=== PATIENT | male | born 1980 | race Caucasian/White ===

== ENCOUNTER 2016-12-23 16:51 | Emergency (ER) | payer MEDICAID ==
[2016-12-23 17:04] VITALS: BP 143/89
[2016-12-23] MEDS ORDERED: LIDOCAINE 5% (700 MG) TRANSDERMAL ADH..PATCH TP ONE (17:32)
--- NOTE | 2016-12-23 17:32 | ER Document Report ---
HPI - HPI Pain Level: 3 Notes: Patient is a 36-year-old male with no significant past medical history presents the ED complaining of being very sensitive to touch of the skin on the left mid back and the location of his previous shingles 13 years ago. Patient states that he did have chickenpox as a child and an episode of shingles 13 years ago which was treated at that time. Patient states that over the last one half days he has been very sensitive to the area without any development of rash. Patient denies any injury. He still eating and drinking without difficulties. Denies any injections or procedures into his back. Denies any IV drug use. Denies any history of diabetes. Denies any headache, fever, neck pain, URI, sore throat, chest pain, palpitations, syncope, cough, shortness of breath, wheeze, dyspnea, abdominal pain, nausea/vomiting/diarrhea, urinary retention, dysuria, hematuria, loss of control of bowel or bladder, numbness/tingling, saddle anesthesia, muscle paralysis/weakness, or rash. - ROS Notes: REVIEW OF SYSTEMS: CONSTITUTIONAL : Denies fever, chills, or sweats. Denies recent illness. EENT: Denies eye, ear, throat, or mouth pain or symptoms. Denies nasal or sinus congestion or discharge. Denies throat, tongue, or mouth swelling or difficulty swallowing. CARDIOVASCULAR: Denies chest pain. Denies palpitations or racing or irregular heart beat. Denies ankle edema. RESPIRATORY: Denies cough, cold, or chest congestion. Denies shortness of breath, difficulty breathing, or wheezing. GASTROINTESTINAL: Denies abdominal pain or distention. Denies nausea, vomiting , or diarrhea. GENITOURINARY: Denies difficulty urinating, painful urination, burning, frequency, blood in urine, or discharge. MUSCULOSKELETAL: see hpi SKIN: Denies rash, lesions or sores. NEUROLOGICAL: Denies confusion or altered mental status. Denies passing out or loss of consciousness. Denies dizziness or lightheadedness. Denies headache. Denies weakness or paralysis or loss of use of either side. Denies problems with gait or speech. Denies sensory loss, numbness, or tingling. ALL OTHER SYSTEMS REVIEWED AND NEGATIVE. Dictation was performed using [employer] voice recognition software Past Medical History - Social History Smoking Status: Current Every Day Smoker Family History: Reviewed & Not Pertinent GI Medical History: Reports: Hx Gastroesophageal Reflux Disease - otc meds Past Surgical History: Reports: Hx Oral Surgery - Immunizations Immunizations up to date: Yes Hx Diphtheria, Pertussis, Tetanus Vaccination: Yes Vertical Provider Document - CONSTITUTIONAL Agree With Documented VS: Yes Notes: PHYSICAL EXAMINATION: GENERAL: Well-appearing, well-nourished and in no acute distress. LUNGS: Breath sounds clear to auscultation bilaterally and equal. No wheezes rales or rhonchi. HEART: Regular rate and rhythm without murmurs, rubs, gallops. ABDOMEN: Soft, nontender, nondistended abdomen. No guarding, no rebound. No masses appreciated. Normal bowel sounds present. No CVA tenderness bilaterally. No pulsatile mass Musculoskeletal: LE's b/l: FROM to passive/active. Strength 5+/5. No deficits noted. No bony tenderness of extremities. Back: FROM to passive/active. Strength 5+/5. No vertebral point tenderness, stepoffs, or deformities. No other bony tenderness, erythema, swelling, or ecchymosis. SLR negative b/l. + tenderness to light touch to the skin of the left mid back around derm. T8. No rash or lesions at this time. Unilateral and does not cross midline. Extremities: No cyanosis, clubbing, or edema b/l. Peripheral pulses 2+. Capillary refill less than 2 seconds. NEUROLOGICAL: Normal speech, ataxic gait. Normal sensory, motor exams. Reflexes 2+ b/l. PSYCH: Normal mood, normal affect. SKIN: Warm, Dry, normal turgor, no rashes or lesions noted. - INFECTION CONTROL TRAVEL OUTSIDE OF THE [place] IN LAST 30 DAYS: No - RESPIRATORY O2 Sat by Pulse Oximetry: 99 Course - Re-evaluation Re-evalutation: 12/23/16 17:39 Patient is an afebrile, well-hydrated, 36-year-old male who presents the ED with hypersensitivity as a left mid back, possible early development of herpes zoster outbreak or neuralgia from previous shingles infection. Vitals are stable. PE is otherwise unremarkable for any focal neurological deficits. Low suspicion for any meningitis, fracture, expanding/ruptured AAA, cauda equina syndrome, epidural mass lesion/abscess, herniated disc causing severe spinal stenosis, or other systemic infection at this time. Patient is aware that his condition can change from initial presentation and that he needs monitor symptoms closely for any acute changes. Lidoderm patch applied today. I will send him home with a prescription for Lidoderm as well as Valtrex. Patient may start the Valtrex if development of any rash or lesions to the skin. Conservative measures for symptoms otherwise. Recheck with your PCM in 3-5 days. Return to the ED with any worsening/concerning symptoms otherwise as reviewed in discharge. Patient is in agreement. - Vital Signs Vital signs: Temp Pulse Resp BP Pulse Ox 98.7 F 101 H 18 143/89 H 99 12/23/16 17:00 12/23/16 17:00 12/23/16 17:00 12/23/16 17:00 12/23/16 17:00 Discharge - Discharge Clinical Impression: Back pain Qualifiers: Back pain location: back pain in unspecified location Chronicity: unspecified Back pain laterality: left Qualified Code(s): M54.9 - Dorsalgia, unspecified Condition: Stable Disposition: HOME, SELF-CARE Additional Instructions: Rest, Ice, Compression, Elevation Tylenol/ibuprofen as needed Light stretches daily Strength exercises as able Moist heat and massage may help F/u with your PCP in 3-5 days for a recheck Consider consult(s) with Orthopedics/physical therapy for ongoing/worsening symptoms Return to the ED with any worsening symptoms and/or development of fever, headache, chest pain, palpitations, syncope, shortness of breath, trouble breathing, abdominal pain, n/v/d, blood in stool/urine, loss of control of bowel /bladder, urinary retention, muscle weakness/paralysis, saddle anesthesia, numbness/tingling, or other worsening symptoms that are concerning to you. Prescriptions: Lidocaine [Lidoderm] 1 each TP DAILY #10 adh..patch Valacyclovir HCl [Valacyclovir] 1,000 mg PO TID #21 tablet Forms: Elevated Blood Pressure, Smoking Cessation Education Referrals: [facility] [Provider Group] - Follow up as needed [facility] [Provider Group] - Follow up as needed
== END 2016-12-23 18:50 | disposition home or self-care (01) ==
LOC: ER 16:51
DX: M54.9 Dorsalgia, unspecified (principal); F17.200 Nicotine dependence, unspecified, uncomplicated
CPT/HCPCS: 99283; J3490

== ENCOUNTER 2016-12-31 19:05 | Emergency (ER) | payer MEDICAID ==
[2016-12-31 19:10] VITALS: BP 150/94
--- NOTE | 2016-12-31 19:19 | ER Document Report ---
HPI - HPI Patient complains to provider of: toe pain Pain Level: 4 Context: Patient is a 36-year-old male who presents emergency department complaining of left second toe pain. States he was helping unload a truck yesterday and jumped off the bed of a truck, denies landing weird. States he woke up this AM with some pain and bruising in his toe but has been able to walk all day with minimal pain and has been taking motrin otherwise healthy Past Medical History - Social History Smoking Status: Current Every Day Smoker Family History: Reviewed & Not Pertinent Renal/ Medical History: Denies: Hx Peritoneal Dialysis GI Medical History: Reports: Hx Gastroesophageal Reflux Disease - otc meds Past Surgical History: Reports: Hx Oral Surgery - Immunizations Immunizations up to date: Yes Hx Diphtheria, Pertussis, Tetanus Vaccination: Yes Vertical Provider Document - CONSTITUTIONAL Agree With Documented VS: Yes Notes: PHYSICAL EXAM GENERAL: Alert, interacts well. HEAD: Normocephalic, atraumatic. EYES: Pupils equal, round, and reactive to light. Extraocular movements intact. ENT: Oral mucosa moist, tongue midline. NECK: Full range of motion. Supple. Trachea midline. LUNGS: Clear to auscultation bilaterally, no wheezes, rales, or rhonchi. No respiratory distress. HEART: Regular rate and rhythm. No murmurs, gallops, or rubs. ABDOMEN: Soft, nondistended, nontender. No guarding, rebound, or rigidity.. Bowel sounds present in all 4 quadrants. EXTREMITIES: Moves all 4 extremities spontaneously. No edema, radial and dorsalis pedis pulses 2/4 bilaterally. No cyanosis. NEUROLOGICAL: Alert and oriented x4. Normal speech. PSYCH: Normal affect, normal mood. SKIN: Warm, dry, normal turgor. No rashes or lesions noted. - INFECTION CONTROL TRAVEL OUTSIDE OF THE [place] IN LAST 30 DAYS: No - RESPIRATORY O2 Sat by Pulse Oximetry: 99 Course - Re-evaluation Re-evalutation: 12/31/16 19:57 No evidence of acute injury on x-ray. Patient able to ambulate without assistance. Patient given Tylenol and is stable for discharge home and can follow-up with primary care - Vital Signs Vital signs: Temp Pulse Resp BP Pulse Ox 98.6 F 119 H 20 150/94 H 99 12/31/16 19:08 12/31/16 19:08 12/31/16 19:08 12/31/16 19:08 12/31/16 19:08 - Diagnostic Test Radiology reviewed: Image reviewed, Reports reviewed Discharge - Discharge Clinical Impression: Toe pain Qualifiers: Laterality: left Qualified Code(s): M79.675 - Pain in left toe(s) Condition: Good Disposition: HOME, SELF-CARE Instructions: Acetaminophen, Use of [id number] Ibuprofen ([facility]), Ice & Elevation ([facility]), Stubbed Toe ([facility]) Referrals: KARINA JOSEPH PA [Primary Care Provider] - Follow up as needed
--- NOTE | 2016-12-31 19:53 | RADIOLOGY REPORT (SQ) ---
EXAM DESCRIPTION: TOE LEFT COMPLETED DATE/TIME: 12/31/2016 7:36 pm REASON FOR STUDY: left 2nd toe with bruising and pain COMPARISON: None. NUMBER OF VIEWS: Two views. TECHNIQUE: AP and lateral images acquired of the left toes. LIMITATIONS: None. FINDINGS: MINERALIZATION: Normal. BONES: No acute fracture or dislocation. No worrisome bone lesions. JOINTS: No effusions. SOFT TISSUES: No soft tissue swelling. No foreign body. OTHER: No other significant finding. IMPRESSION: NO RADIOGRAPHIC EVIDENCE OF ACUTE INJURY. COMMENT: SITE OF TRAUMA/COMPLAINT MARKED/STAMP COMPLETED: No TECHNICAL DOCUMENTATION: JOB ID: [id number] [place]-72 2010 [employer]- All Rights Reserved
== END 2016-12-31 20:00 | disposition home or self-care (01) ==
LOC: ER 19:05
DX: M79.675 Pain in left toe(s) (principal); F17.200 Nicotine dependence, unspecified, uncomplicated
CPT/HCPCS: 99283

== ENCOUNTER → 2017-11-11 | Outpatient (CLI) | payer MEDICAID ==
--- NOTE | 2017-11-11 18:36 | RADIOLOGY REPORT (SQ) ---
EXAM DESCRIPTION: L SPINE WHOLE COMPLETED DATE/TIME: 11/11/2017 6:14 pm REASON FOR STUDY: S39.012A STRAIN OF MUSCLE, FASCIA AND TENDON OF LOWER BACK, INIT S39.012A STRAIN OF MUSCLE, FASCIA AND TENDON OF LOWER BACK, COMPARISON: 07/10/2009 NUMBER OF VIEWS: Five views including obliques. TECHNIQUE: AP, lateral, oblique, and sacral radiographic images acquired of the lumbar spine. LIMITATIONS: None. FINDINGS: MINERALIZATION: Normal. SEGMENTATION: Normal. No transitional anatomy. ALIGNMENT: Normal. VERTEBRAE: Maintained height. No fracture or worrisome bone lesion. DISCS: Preserved height. No significant osteophytes or end plate irregularity. POSTERIOR ELEMENTS: Pedicles and facets are intact. No pars defect or posterior arch defects. HARDWARE: None in the spine. PARASPINAL SOFT TISSUES: Normal. PELVIS: Intact as visualized. No fractures or worrisome bone lesions. SI joints intact. OTHER: No other significant finding. IMPRESSION: NORMAL 5 VIEW LUMBAR SPINE. TECHNICAL DOCUMENTATION: JOB ID: [id number] [employer]- All Rights Reserved Reading location - IP/workstation name: [email or web address]
== END ==
LOC: RAD 17:40
PROVIDERS: ATTEND Family Medicine
DX: S39.012A Strain of muscle, fascia and tendon of lower back, initial encounter (principal); X58.XXXA Exposure to other specified factors, initial encounter
CPT/HCPCS: 72110

== ENCOUNTER 2018-08-10 13:51 | Emergency (ER) | payer MEDICAID ==
[2018-08-10] MEDS ORDERED: ALBUTEROL SULFATE HFA (90 MCG/PUFF) 8 GM MDI (1 MDI/ER DISP) IH PRN (15:16)
[2018-08-10] MEDS ORDERED: CETIRIZINE 10 MG TABLET PO ONE (15:16)
[2018-08-10] MEDS ORDERED: BENZONATATE 100 MG CAPSULE PO ONE (15:16)
--- NOTE | 2018-08-10 15:18 | ER Document Report ---
HPI - HPI Time Seen by Provider: 08/10/18 15:09 Pain Level: 4 Context: Patient is a 38-year-old male who presents to the emergency department the chief complaint of a cough. His cough started 6 days ago. He reports the fever of 101.6 last night while he was on Tylenol. He has not been taking any ibuprofen. He states that his chest hurts when he coughs. Denies hemoptysis. Patient is an everyday smoker. He also occasionally smokes marijuana. - CONSTITUTIONAL Constitutional: REPORTS: Fever - EENT EENT: REPORTS: Nasal Drainage-Clear, Congestion. DENIES: Ear Pain, Nasal Drainage-Purulent, Eye problems - NEURO Neurology: DENIES: Headache - CARDIOVASCULAR Cardiovascular: DENIES: Chest pain - RESPIRATORY Respiratory: REPORTS: Trouble Breathing, Coughing - MUSCULOSKELETAL Musculoskeletal: DENIES: Extremity pain - DERM Skin Color: Normal Skin Problems: None Past Medical History - General Information source: Patient - Social History Smoking Status: Current Every Day Smoker Frequency of alcohol use: Occasional Drug Abuse: Marijuana - Occasional Family History: Reviewed & Not Pertinent Renal/ Medical History: Denies: Hx Peritoneal Dialysis GI Medical History: Reports: Hx Gastroesophageal Reflux Disease - otc meds Past Surgical History: Reports: Hx Oral Surgery - Immunizations Immunizations up to date: Yes Hx Diphtheria, Pertussis, Tetanus Vaccination: Yes Vertical Provider Document - CONSTITUTIONAL Agree With Documented VS: Yes Exam Limitations: No Limitations General Appearance: No Apparent Distress - INFECTION CONTROL TRAVEL OUTSIDE OF THE [place] IN LAST 30 DAYS: No - HEENT HEENT: Atraumatic, Normocephalic, PERRLA, Pharyngeal Erythema. negative: Pharyngeal Exudate, Pharyngeal Tenderness, Tympanic Membrane Red, Tympanic Membrane Bulging - NECK Neck: Normal Inspection - RESPIRATORY Respiratory: No Respiratory Distress, Rhonchi - Right lower lobe - CARDIOVASCULAR Cardiovascular: Regular Rate, Regular Rhythm Pulses: Normal: Radial - MUSCULOSKELETAL/EXTREMETIES Musculoskeletal/Extremeties: FROM - NEURO Level of Consciousness: Awake, Alert, Appropriate - DERM Integumentary: Warm, Dry, No Rash Course - Re-evaluation Re-evalutation: 08/10/18 16:29 Patient's chest x-ray shows right lower lobe pneumonia. He will be started on azithromycin here in the emergency department and go home with azithromycin to take home with. He will also go home with Jelly Barrera. He will follow-up with his primary care provider in regards to this visit. Follow-up precautions were given. Verbal discharge instructions were given to the patient. They verbalized understanding. They are stable for discharge. - Vital Signs Vital signs: Temp Pulse Resp BP Pulse Ox 98 F 97 20 121/61 95 08/10/18 13:52 08/10/18 13:52 08/10/18 13:52 08/10/18 13:52 08/10/18 13:52 Discharge - Discharge Clinical Impression: Cough Pneumonia Qualifiers: Pneumonia type: due to unspecified organism Laterality: right Lung location: lower lobe of lung Qualified Code(s): J18.1 - Lobar pneumonia, unspecified organism Condition: Stable Disposition: HOME, SELF-CARE Additional Instructions: You have been diagnosed with a pneumonia. It is very important that you take all of your antibiotics until they are gone even if you are feeling better. Please return to the emergency department immediately if you began having worsening shortness of breath, become confused, have worsening pain, pass out, have persistent vomiting that prevents you from being able to drink fluids for more than 12 hours, or have any other symptoms that are worrisome to you. Please follow-up with your primary care doctor in the next 1-2 days. Prescriptions: Azithromycin [Zithromax 250 mg Tablet] 250 mg PO DAILY #4 tablet Forms: Return to Work Referrals: YUSEF WALLS MD [Primary Care Provider] - Follow up tomorrow
--- NOTE | 2018-08-10 16:09 | RADIOLOGY REPORT (SQ) ---
EXAM DESCRIPTION: CHEST 2 VIEWS COMPLETED DATE/TIME: 08/10/2018 3:42 pm REASON FOR STUDY: cough COMPARISON: 06/10/2013 EXAM PARAMETERS: NUMBER OF VIEWS: two views TECHNIQUE: Digital Frontal and Lateral radiographic views of the chest acquired. RADIATION DOSE: NA LIMITATIONS: none FINDINGS: LUNGS AND PLEURA: There is increased opacification in the right base and posteriorly on th e lateral view. MEDIASTINUM AND HILAR STRUCTURES: No masses or contour abnormalities. HEART AND VASCULAR STRUCTURES: Heart normal size. No evidence for failure. BONES: No acute findings. HARDWARE: None in the chest. OTHER: No other significant finding. IMPRESSION: Right lower lobe pneumonia. TECHNICAL DOCUMENTATION: JOB ID: [id number] [employer]- All Rights Reserved Reading location - IP/workstation name: [email or web address]
[2018-08-10] MEDS ORDERED: AZITHROMYCIN 250 MG TABLET PO ONE (16:29)
[2018-08-10 16:38] VITALS: BP 110/58
== END 2018-08-10 16:38 | disposition home or self-care (01) ==
LOC: ER 13:51
DX: J18.1 Lobar pneumonia, unspecified organism (principal); R05 Cough; R07.9 Chest pain, unspecified; R50.9 Fever, unspecified; R09.89 Other specified symptoms and signs involving the circulatory and respiratory systems; R06.00 Dyspnea, unspecified; F17.200 Nicotine dependence, unspecified, uncomplicated; F12.10 Cannabis abuse, uncomplicated
CPT/HCPCS: 99283; 71046; J3490 ×3; Q0144

== ENCOUNTER 2018-08-18 00:02 | Emergency (ER) | payer MEDICAID ==
[2018-08-18 00:30] VITALS: BP 123/80
== END 2018-08-18 02:27 | disposition left against medical advice (07) ==
LOC: ER 00:02
DX: Z53.21 Procedure and treatment not carried out due to patient leaving prior to being seen by health care provider (principal)

== ENCOUNTER 2018-10-11 20:44 | Emergency (ER) | payer MEDICAID ==
--- NOTE | 2018-10-11 21:31 | ER Document Report ---
HPI - HPI Time Seen by Provider: 10/11/18 21:12 Pain Level: 5 Notes: Patient is a 38-year-old male with no significant past medical history who presents complaining of right great toe pain status post injury prior to arrival. Patient states that he stubbed his toe on a dresser. He has noticed some bruising to the dorsal toe. He does have increased pain with movement. He has not noticed any bruising or bleeding underneath his nail. Denies drug allergies. No laceration or abrasion that he has noted. Denies any headache, fever, URI, sore throat, chest pain, palpitations, syncope, cough, shortness of breath, wheeze, dyspnea, abdominal pain, nausea/vomiting/diarrhea, urinary retention, dysuria, hematuria, loss of control of bowel or bladder, numbness/tingling, muscle paralysis/weakness, or rash. - ROS Systems Reviewed and Negative: Yes All other systems reviewed and negative Past Medical History - Social History Smoking Status: Current Every Day Smoker Family History: Reviewed & Not Pertinent Renal/ Medical History: Denies: Hx Peritoneal Dialysis GI Medical History: Reports: Hx Gastroesophageal Reflux Disease - otc meds Past Surgical History: Reports: Hx Oral Surgery - Immunizations Immunizations up to date: Yes Hx Diphtheria, Pertussis, Tetanus Vaccination: Yes Vertical Provider Document - CONSTITUTIONAL Agree With Documented VS: Yes Notes: PHYSICAL EXAMINATION: GENERAL: Well-appearing, well-nourished and in no acute distress. LUNGS: Breath sounds clear to auscultation bilaterally and equal. No wheezes rales or rhonchi. HEART: Regular rate and rhythm without murmurs, rubs, gallops. Musculoskeletal: Rt foot/ankle: + mild swelling/ecchymosis great toe. LROM to passive/active flexion due to pain/swelling. No subungual hematoma. Strength 5+/5. N/V intact distal. No bony tenderness of the foot/ankle otherwise. Achilles intact. Lis Franc maneuver neg. Anterior drawer neg. Extremities: No cyanosis, clubbing, or edema b/l. Peripheral pulses 2+. Capillary refill less than 3 seconds. NEUROLOGICAL: Normal speech, limping gait. Normal sensory, motor exams PSYCH: Normal mood, normal affect. SKIN: see above - INFECTION CONTROL TRAVEL OUTSIDE OF THE [place] IN LAST 30 DAYS: No Course - Re-evaluation Re-evalutation: 10/11/18 22:21 Patient is an afebrile, well-hydrated, 38-year-old male who presents to the ED with a fracture to the rt great toe. Vitals are acceptable without any significant tachycardia, tachypnea, or hypoxia. PE is otherwise unremarkable for any neurovascular compromise, obvious tendon/ligament rupture, open fracture, septic joint. See XR result. Post op shoe given today and crutches provided. Pt given pain medicine PO. Patient is nontoxic-appearing. No other labs or imaging warranted at this time based on H&P. Conservative measures otherwise for symptoms. Recheck with your PCM in 3-5 days. Call orthopedics tomorrow to schedule an appointment for further evaluation and management. Return to the ED with any worsening/concerning symptoms otherwise as reviewed in discharge. Patient is in agreement. - Vital Signs Vital signs: Temp Pulse Resp BP Pulse Ox 98.5 F 105 H 18 130/83 H 100 10/11/18 20:48 10/11/18 20:48 10/11/18 20:48 10/11/18 20:48 10/11/18 20:48 Discharge - Discharge Clinical Impression: Toe fracture, right Qualifiers: Encounter type: initial encounter Toe: great toe Fracture type: closed Phalanx: distal Fracture alignment: displaced Qualified Code(s): S92.421A - Displaced fracture of distal phalanx of right great toe, initial encounter for closed fracture Condition: Stable Disposition: HOME, SELF-CARE Additional Instructions: Rest, Ice, Compression, Elevation Use crutches/splint as directed Tylenol/ibuprofen as needed F/u with your PCP in 3-5 days for a recheck Call orthopedics tomorrow to schedule an appointment for further evaluation and management Return to the ED with any worsening symptoms and/or development of fever, headache, chest pain, palpitations, syncope, shortness of breath, trouble breathing, abdominal pain, n/v/d, muscle weakness/paralysis, numbness/tingling, swelling, redness, or other worsening symptoms that are concerning to you. Prescriptions: Tramadol HCl [Ultram 50 mg Tablet] 50 mg PO Q4HP PRN #15 tab PRN Reason: Forms: Elevated Blood Pressure, Smoking Cessation Education, Return to Work Referrals: [facility] ([facility]) [Provider Group] - Follow up as needed
[2018-10-11] MEDS ORDERED: OXYCODONE HCL IR 5 MG TABLET PO ONE (21:58)
--- NOTE | 2018-10-11 22:24 | RADIOLOGY REPORT (SQ) ---
Right foot three view on 10/11/2018 at 9:49 PM CLINICAL INDICATION: Right great toe pain after injury COMPARISON: None FINDINGS: There is an acute, oblique, minimally displaced, intra-articular fracture involving the base of the first distal phalanx. No other fracture is noted. Visualized joints are well aligned. No other bony abnormality is noted. IMPRESSION: Acute fracture of the base of the first distal phalanx as above.
[2018-10-11 22:33] VITALS: BP 119/73
== END 2018-10-11 22:32 | disposition home or self-care (01) ==
LOC: ER 20:44
DX: S92.421A Displaced fracture of distal phalanx of right great toe, initial encounter for closed fracture (principal); M79.674 Pain in right toe(s); W22.03XA Walked into furniture, initial encounter; F17.200 Nicotine dependence, unspecified, uncomplicated
CPT/HCPCS: 73630; J3490

== ENCOUNTER 2018-10-13 22:55 | Emergency (ER) | payer MEDICAID ==
[2018-10-14] MEDS ORDERED: HYDROCODONE/ACETAMINOPHEN 5-325 MG (6 TAB/ER DISP) PO PRN (00:03)
[2018-10-14 00:17] VITALS: BP 125/77
--- NOTE | 2018-10-14 00:50 | ER Document Report ---
HPI - HPI Patient complains to provider of: R big toe pain Time Seen by Provider: 10/13/18 23:31 Pain Level: 4 Context: 38-year-old male presents the emergency department with chief complaint of right big toe pain. Patient was seen here 2 days ago and diagnosed with a fracture of his right big toe. He is concerned because he is having significant pain and redness at the base of the nail not involving the nail. Patient states that his just had a hysterectomy and he has to take care of his 3 young children so he is constantly on his feet and unable to rest. Patient denies any pressure underneath the toenail or any discoloration, denies any significant new swelling from previous visit. No other complaints Past Medical History - Social History Smoking Status: Unknown if Ever Smoked Family History: Reviewed & Not Pertinent Patient has suicidal ideation: No Patient has homicidal ideation: No Renal/ Medical History: Denies: Hx Peritoneal Dialysis GI Medical History: Reports: Hx Gastroesophageal Reflux Disease - otc meds Past Surgical History: Reports: Hx Oral Surgery - Immunizations Immunizations up to date: Yes Hx Diphtheria, Pertussis, Tetanus Vaccination: Yes Vertical Provider Document - CONSTITUTIONAL Notes: PHYSICAL EXAMINATION: Reviewed vital signs and charting by RN GENERAL: Alert, interacts well. No acute distress. HEAD: Normocephalic, atraumatic. EYES: Pupils equal and round. Extraocular movements intact. ENT: Oral mucosa moist, tongue midline. EXTREMITIES: Moves all 4 extremities spontaneously, edema of the right big toe with some bruising at the base of the nail not involving the toenail, no evidence of a subungual hematoma PSYCH: Normal affect, normal mood. SKIN: Warm, dry, normal turgor. No rashes or lesions noted. - INFECTION CONTROL TRAVEL OUTSIDE OF THE [place] IN LAST 30 DAYS: No Course - Re-evaluation Re-evalutation: 10/14/18 00:52 Patient most likely overusing his foot as he is forced to take care of his kids while his is recovering duration. I explained to patient that he needs to frequently ice it and elevate it any chance he gets even if it is for short bursts. There is no evidence of a subungual hematoma, no evidence of any new acute process, I explained to patient that he should take Motrin 600 mg every 6 hours for pain and inflammation and I did give him a short course of pain medication. He understands plan agrees and is stable for discharge. - Vital Signs Vital signs: Temp Pulse Resp BP Pulse Ox 98.5 F 99 18 132/79 H 98 10/13/18 23:09 10/13/18 23:09 10/13/18 23:09 10/13/18 23:09 10/13/18 23:09 Discharge - Discharge Clinical Impression: Toe pain, right Condition: Good Disposition: HOME, SELF-CARE Additional Instructions: You were seen in the emergency department this evening for right big toe pain. Your exam was reassuring and because of your activity level right now it is because it is due to soft tissue swelling and you need to elevate it and ice it while you have opportunities to rest. I recommend buying a couple of bags of peas frozen and if you can elevate and ice your toe for 15 to 20 minutes every couple hours. If you only have a couple of minutes at a time take the oppor tunity and ice your toe. Please take Motrin 600 mg every 6 hours with food and/or milk for inflammation and you can take Tylenol 1000 mg every 6 hours for pain. Also I have given you a short course of pain medication to help bridge you through this acute phase. Please take it for breakthrough pain. Please return to the emergency department if you have any concerns or worsening symptoms.
== END 2018-10-14 00:15 | disposition home or self-care (01) ==
LOC: ER 22:55
DX: S90.111A Contusion of right great toe without damage to nail, initial encounter (principal); M79.674 Pain in right toe(s); X58.XXXA Exposure to other specified factors, initial encounter
CPT/HCPCS: 99282

== ENCOUNTER 2018-10-15 19:43 | Emergency (ER) | payer MEDICAID ==
--- NOTE | 2018-10-15 21:14 | RADIOLOGY REPORT (SQ) ---
EXAM DESCRIPTION: XR TOES 2 OR MORE VIEWS COMPLETED DATE/TME: 10/15/2018 00:00 CLINICAL HISTORY: 38 years Male bone pain COMPARISON: None. TECHNIQUE: Right toe, three views FINDINGS: Comminuted intra-articular fracture of the base of the first distal phalanx. Associated soft tissue swelling. No radiopaque foreign object noted. IMPRESSION: Comminuted fracture of the base of the first distal phalanx with soft tissue swelling
[2018-10-15] MEDS ORDERED: HYDROCODONE/ACETAMINOPHEN 5-325 MG (6 TAB/ER DISP) PO PRN (22:35)
--- NOTE | 2018-10-15 22:45 | ER Document Report ---
ED General - General Chief Complaint: Toe Injury Stated Complaint: RIGHT FOOT INJURY Time Seen by Provider: 10/15/18 22:23 Primary Care Provider: ALTAGRACIA CONTRERAS DPM [ACTIVE STAFF] - Follow up in 3-5 days Notes: Patient is a pleasant 38-year-old male who was seen here a few days ago after actually hitting the toe. The time the x-ray which did show fracture. He to follow-up orthopedics at this time there is nothing due for fracture and that would eventually on its own. Patient today was wearing his postop shoe but stepped in hole and toe bent and he felt the cracking of his toes which were painful and therefore his return to the ER. He denies any other injuries. TRAVEL OUTSIDE OF THE [place] IN LAST 30 DAYS: No - Related Data Allergies/Adverse Reactions: No Known Allergies Allergy (Verified 10/13/18 23:08) Past Medical History - Social History Smoking Status: Current Every Day Smoker Chew tobacco use (# tins/day): No Frequency of alcohol use: Rare Drug Abuse: None Family History: Reviewed & Not Pertinent Patient has suicidal ideation: No Patient has homicidal ideation: No Renal/ Medical History: Denies: Hx Peritoneal Dialysis GI Medical History: Reports: Hx Gastroesophageal Reflux Disease - otc meds Past Surgical History: Reports: Hx Oral Surgery - Immunizations Immunizations up to date: Yes Hx Diphtheria, Pertussis, Tetanus Vaccination: Yes Review of Systems - Review of Systems Notes: My Normal Review Basic REVIEW OF SYSTEMS: CONSTITUTIONAL : Denies fever, chills, or sweats. Denies recent illness. MUSCULOSKELETAL: Right big toe pain. SKIN: Denies rash or skin lesions. NEUROLOGICAL: Denies sensory or motor loss. ALL OTHER SYSTEMS REVIEWED AND NEGATIVE. Physical Exam - Vital signs Vitals: Temp Pulse Resp BP Pulse Ox 98.9 F 106 H 16 129/84 H 96 10/15/18 19:59 10/15/18 19:59 10/15/18 19:59 10/15/18 19:59 10/15/18 19:59 - Notes Notes: General Appearance: Well nourished, alert, cooperative, no acute distress, no obvious discomfort. Vitals: reviewed, See vital signs table. Extremities: She has obvious swelling to the right toe. Toe appears to be in line. He has good cap refill. Good distal sensation. Remainder foot and ankle are nontender. Skin: warm, dry, appropriate color, no rash Neuro: speech clear, oriented x 3, normal affect, responds appropriately to questions. Course - Re-evaluation Re-evalutation: 10/16/18 06:45 Patient has now a second fracture of the toe. He has some slight displacement. I talked about ora taping with postop shoe versus splint. He said he like to try aluminum splint. I informed him that if the splint is uncomfortable that he can remove it and ora tape his toe. Alignment continues to postop shoe. Given crutches. I will refer him to podiatry. Patient to return to ER if he has any further concerns. Patient agrees with plan will be discharged home. Dictation of this chart was performed using voice recognition software; therefo re, there may be some unintended grammatical errors. - Vital Signs Vital signs: Temp Pulse Resp BP Pulse Ox 98.7 F 89 15 127/80 H 99 10/15/18 23:02 10/15/18 23:02 10/15/18 23:02 10/15/18 23:02 10/15/18 23:02 Discharge - Discharge Clinical Impression: Toe fracture, right Qualifiers: Encounter type: initial encounter Toe: great toe Fracture type: closed Phalanx: distal Fracture alignment: displaced Qualified Code(s): S92.421A - Displaced fracture of distal phalanx of right great toe, initial encounter for closed fracture Condition: Good Disposition: HOME, SELF-CARE Additional Instructions: Please call Dr. Contreras, home care specialist, to make a follow-up appointment for reevaluation of your toe. Please continue wear the postop shoe. I did place an aluminum splint on your toe. If this is uncomfortable then you can remove it and just ora tape your toe. Please be aware that [facility] does have Tylenol (acetaminophen) in it. Please make sure you do not take more than 4000 mg of acetaminophen a day. Do not drive or care for children after you have taken this medication they will make you sleepy and sometimes impair judgment. Referrals: ALTAGRACIA CONTRERAS, NEREIDA [ACTIVE STAFF] - Follow up in 3-5 days
[2018-10-15 23:04] VITALS: BP 127/80
== END 2018-10-15 23:02 | disposition home or self-care (01) ==
LOC: ER 19:43
DX: S92.421A Displaced fracture of distal phalanx of right great toe, initial encounter for closed fracture (principal); X50.0XXA Overexertion from strenuous movement or load, initial encounter; F17.210 Nicotine dependence, cigarettes, uncomplicated
CPT/HCPCS: 99283

== ENCOUNTER 2019-10-11 13:41 | Emergency (ER) | payer MEDICAID ==
[2019-10-11 14:45] VITALS: BP 127/70
--- NOTE | 2019-10-11 16:13 | RADIOLOGY REPORT (SQ) ---
EXAM DESCRIPTION: HAND RIGHT 3 VIEWS IMAGES COMPLETED DATE/TIME: 10/11/2019 4:02 pm REASON FOR STUDY: injury COMPARISON: 11/09/2011. EXAM PARAMETERS: NUMBER OF VIEWS: Three views. TECHNIQUE: AP, lateral and oblique radiographic images acquired of the right hand. LIMITATIONS: None. FINDINGS: MINERALIZATION: Normal. BONES: No acute fracture or dislocation. No worrisome bone lesions. JOINTS: No effusions. SOFT TISSUES: No soft tissue swelling. No foreign body. OTHER: No other significant finding. IMPRESSION: NEGATIVE STUDY OF THE RIGHT HAND. NO RADIOGRAPHIC EVIDENCE OF ACUTE INJURY. TECHNICAL DOCUMENTATION: JOB ID: [id number] 2010 [email or web address] All Rights Reserved Reading location - IP/workstation name: [email or web address]
--- NOTE | 2019-10-11 16:24 | ER Document Report ---
HPI - HPI Patient complains to provider of: Right hand pain Time Seen by Provider: 10/11/19 15:42 Pain Level: 4 Context: 39-year-old male presents to the emergency room complaining of bruising and swelling to his right hand after punching a wall with it 2 days ago. Does have 2 small abrasions noted. States his tetanus is up-to-date. Denies any history of previous trauma or injury to his right hand. Patient is right-handed. States has been taken Tylenol and Motrin with some relief. Associated Symptoms: None Exacerbated by: Movement Relieved by: Denies Similar symptoms previously: No Recently seen / treated by doctor: No - ROS Systems Reviewed and Negative: Yes All other systems reviewed and negative - CONSTITUTIONAL Constitutional: DENIES: Fever - NEURO Neurology: DENIES: Weakness - MUSCULOSKELETAL Musculoskeletal: REPORTS: Extremity pain - right hand - DERM Skin Color: Ecchymosis Skin Problems: Abrasion Past Medical History - General Information source: Patient - Social History Smoking Status: Current Every Day Smoker Chew tobacco use (# tins/day): No Frequency of alcohol use: None Drug Abuse: None Family History: Reviewed & Not Pertinent Patient has homicidal ideation: No Renal/ Medical History: Denies: Hx Peritoneal Dialysis GI Medical History: Reports: Hx Gastroesophageal Reflux Disease - otc meds Past Surgical History: Reports: Hx Oral Surgery - Immunizations Immunizations up to date: Yes Hx Diphtheria, Pertussis, Tetanus Vaccination: Yes Vertical Provider Document - CONSTITUTIONAL Agree With Documented VS: Yes Exam Limitations: No Limitations - INFECTION CONTROL TRAVEL OUTSIDE OF THE [place] IN LAST 30 DAYS: No - HEENT HEENT: Atraumatic, Normocephalic - NECK Neck: Normal Inspection, Supple - RESPIRATORY Respiratory: Breath Sounds Normal, No Respiratory Distress, Chest Non-Tender - CARDIOVASCULAR Cardiovascular: Regular Rate, Regular Rhythm, No Murmur - MUSCULOSKELETAL/EXTREMETIES Musculoskeletal/Extremeties: Tender - Tenderness on palpation over the mid dorsal aspect of the right hand. There is painful range of motion with flexion extension to the fingers of the right hand. Is no obvious deformity palpated. - NEURO Level of Consciousness: Awake, Alert, Appropriate Motor/Sensory: No Motor Deficit, No Sensory Deficit Notes: Positive right radial pulse. Capillary refill less than 3 seconds. - DERM Integumentary: Warm, Dry Notes: There are 2 small abrasions noted over the dorsal mid aspect of the right hand. There is no active bleeding noted. Multiple areas of ecchymosis noted to the dorsal aspect of the right hand. Course - Re-evaluation Re-evalutation: 10/11/19 16:22 Patient was counseled on negative x-rays for fractures. He was counseled on need to rest, ice, elevate his right hand. Continue with Tylenol and/or Motrin as needed for pain. Outpatient follow-up with orthopedics if not improving in 2 to 3 days. On-call physician was provided. Patient was given strict return to the emergency room guidelines. Return for any new or worsening symptoms. All questions were answered. Patient verbalized understanding and agrees with plan of care. - Vital Signs Vital signs: Temp Pulse Resp BP Pulse Ox 99.2 F 91 18 127/70 H 97 10/11/19 14:43 10/11/19 14:43 10/11/19 14:43 10/11/19 14:43 10/11/19 14:43 - Diagnostic Test Radiology reviewed: Reports reviewed Discharge - Discharge Clinical Impression: Contusion of right hand Qualifiers: Encounter type: initial encounter Qualified Code(s): S60.221A - Contusion of right hand, initial encounter Condition: Stable Disposition: HOME, SELF-CARE Instructions: Contusion ([facility]) Additional Instructions: Rest, ice, elevate right hand. Continue with Tylenol and or Motrin as needed for pain. Outpatient follow-up with orthopedics as discussed. Return to the emergency room for any new or worsening symptoms. Referrals: RICH PATHAK MD [ACTIVE STAFF] - Follow up as needed RENEA ADAMS DO [ACTIVE STAFF] - Follow up as needed
== END 2019-10-11 16:35 | disposition home or self-care (01) ==
LOC: ER 13:41
DX: S60.221A Contusion of right hand, initial encounter (principal); S60.511A Abrasion of right hand, initial encounter; M79.641 Pain in right hand; W22.01XA Walked into wall, initial encounter; Y92.009 Unspecified place in unspecified non-institutional (private) residence as the place of occurrence of the external cause; F17.200 Nicotine dependence, unspecified, uncomplicated
CPT/HCPCS: 99283

== ENCOUNTER 2019-11-17 18:52 | Emergency (ER) | payer MEDICAID ==
[2019-11-17] MEDS ORDERED: ACETAMINOPHEN 325 MG TABLET PO ONE (19:37)
--- NOTE | 2019-11-17 19:39 | ER Document Report ---
HPI - HPI Patient complains to provider of: Toe injury Time Seen by Provider: 11/17/19 19:33 Onset: This evening Onset/Duration: Sudden Quality of pain: Achy Pain Level: 4 Context: Patient states that he was walking and kicked a door frame this evening. Patient reports deformity to the right fifth toe. Patient states he was walking and felt a sudden pop and suspects that it is back in proper alignment at this time. Associated Symptoms: Other - Right fifth toe pain Exacerbated by: Standing, Movement, Walking Relieved by: Denies Similar symptoms previously: No Recently seen / treated by doctor: No - ROS ROS below otherwise negative: Yes Systems Reviewed and Negative: Yes All other systems reviewed and negative - GASTROINTESTINAL Gastrointestinal: DENIES: Nausea - MUSCULOSKELETAL Musculoskeletal: REPORTS: Extremity pain - DERM Skin Color: Normal Skin Problems: None Past Medical History - General Information source: Patient - Social History Smoking Status: Current Every Day Smoker Frequency of alcohol use: None Drug Abuse: None Occupation: None Lives with: Family Family History: Reviewed & Not Pertinent - Medical History Medical History: Negative Renal/ Medical History: Denies: Hx Peritoneal Dialysis GI Medical History: Reports: Hx Gastroesophageal Reflux Disease - otc meds Past Surgical History: Reports: Hx Oral Surgery - Immunizations Immunizations up to date: Yes Hx Diphtheria, Pertussis, Tetanus Vaccination: Yes Vertical Provider Document - CONSTITUTIONAL Agree With Documented VS: Yes Exam Limitations: No Limitations General Appearance: WD/WN, No Apparent Distress - INFECTION CONTROL TRAVEL OUTSIDE OF THE [place] IN LAST 30 DAYS: No - HEENT HEENT: Atraumatic, Normocephalic - NECK Neck: Normal Inspection - RESPIRATORY Respiratory: No Respiratory Distress - CARDIOVASCULAR Pulses: Normal: Dorsalis pedis - MUSCULOSKELETAL/EXTREMETIES Musculoskeletal/Extremeties: MAEW, Tender - Right fifth toe tenderness, no edema, no ecchymosis, no deformity, no nail injury, No Edema. negative: Eccymosis - NEURO Level of Consciousness: Awake, Alert, Appropriate Motor/Sensory: No Motor Deficit - DERM Integumentary: Warm, Dry, No Rash Course - Re-evaluation Re-evalutation: 11/17/19 20:21 Patient with proximal phalanx toe fracture on the right foot. Will immobilize and refer to orthopedics for further management. - Vital Signs Vital signs: Temp Pulse Resp BP Pulse Ox 98.1 F 105 H 20 124/76 99 11/17/19 19:37 11/17/19 19:37 11/17/19 19:37 11/17/19 19:37 11/17/19 19:37 - Diagnostic Test Radiology reviewed: Pending, Image reviewed Procedures - Immobilization Right Toe Pre-Proc Neuro Vasc Exam: Normal Immobilizer type: Post-op shoe Performed by: PCT Post-Proc Neuro Vasc Exam: Normal Alignment checked and good: Yes Discharge - Discharge Clinical Impression: Fracture of fifth toe, right, closed Qualifiers: Encounter type: initial encounter Qualified Code(s): S92.501A - Displaced unspecified fracture of right lesser toe(s), initial encounter for closed fracture Condition: Stable Disposition: HOME, SELF-CARE Instructions: Trung Taping (toes) ([facility]), Post-Op Shoe ([facility]), Fractured Toe ([facility]) Additional Instructions: Return immediately for any new or worsening symptoms Followup with your primary care provider, call tomorrow to make a followup appointment Follow-up with orthopedics for further evaluation, call tomorrow for an appointment Referrals: [facility] ([facility]) [Provider Group] - Follow up as needed
[2019-11-17] MEDS ORDERED: HYDROCODONE/ACETAMINOPHEN 5-325 MG (6 TAB/ER DISP) PO PRN (20:22)
--- NOTE | 2019-11-17 20:39 | RADIOLOGY REPORT (SQ) ---
CLINICAL INDICATION: r 5th toe injury. Pain. TECHNIQUE: 3 view(s) obtained of the right toes. COMPARISON: October 15, 2018. FINDINGS: Mildly displaced spiral fracture of the diaphysis of the fifth proximal phalanx. No other acute bony injury. Joint spaces are within normal limits for age. Tissue swelling. IMPRESSION: Acute fifth proximal phalanx.
[2019-11-17 21:10] VITALS: BP 114/71
== END 2019-11-17 21:10 | disposition home or self-care (01) ==
LOC: ER 18:52
DX: S92.511A Displaced fracture of proximal phalanx of right lesser toe(s), initial encounter for closed fracture (principal); W22.09XA Striking against other stationary object, initial encounter; Y93.01 Activity, walking, marching and hiking; F17.200 Nicotine dependence, unspecified, uncomplicated
CPT/HCPCS: 99283